=== PATIENT | female | born 1935 | race Caucasian/White ===

== ENCOUNTER 2021-12-02 18:22 | Emergency (ER) ==
[~2021-12-02] VITALS: Ht 152.4 cm; Wt 56.1 kg
== END 2021-12-02 21:34 | disposition left against medical advice (07) ==
LOC: M ED 18:22
DX: Z53.21 Procedure and treatment not carried out due to patient leaving prior to being seen by health care provider (principal)

== ENCOUNTER → 2022-04-27 | Outpatient (CLI) | payer MEDICARE, BC | LOC: M WUC 13:00 | PROVIDERS: ATTEND Physician Assistant | DX: S00.33XA Contusion of nose, initial encounter (principal); S60.222A Contusion of left hand, initial encounter; X58.XXXA Exposure to other specified factors, initial encounter; M25.762 Osteophyte, left knee; Z96.9 Presence of functional implant, unspecified ==

== ENCOUNTER 2022-05-30 13:17 | Emergency (ER) | payer MEDICARE, BC ==
[~2022-05-30] VITALS: Ht 154.9 cm; Wt 60.0 kg
[2022-05-30] MEDS ORDERED: ASPI81TA26 (13:36)
[2022-05-30] MEDS ORDERED: MIRT-10 (13:36)
[2022-05-30] MEDS ORDERED: ALEN70TA82 (13:36)
[2022-05-30] MEDS ORDERED: SERT25TA21 (13:36)
[2022-05-30] MEDS ORDERED: ROSU20TA5 (13:36)
[2022-05-30] MEDS ORDERED: MYRB50TA (13:36)
[2022-05-30] MEDS ORDERED: MAGN400T33 (13:36)
[2022-05-30] MEDS ORDERED: LEVO88TA3 (13:36)
[2022-05-30 15:23] LABS: BASO # 0.1 10^3/uL (0.0-0.2); BASO % 0.9 % (0.0-1.0); EOS # 0.2 10^3/uL (0.0-0.5); EOS % 4.4 % (0.0-3.0); HEMATOCRIT 40.2 % (36.0-47.0); HEMOGLOBIN 13.1 g/dl (12.0-15.5); LYMPH # 1.2 10^3/uL (1.5-5.0); LYMPH % 21.8 % (24.0-44.0); MEAN CORPUSCULAR HEMOGLOBIN 31.6 pg (27.0-33.0); MEAN CORPUSCULAR HGB CONC 32.6 g/dl (32.0-36.5); MEAN CORPUSCULAR VOLUME 97.1 fl (80.0-96.0); MONO # 0.5 10^3/uL (0.0-0.8); MONO % 8.5 % (2.0-8.0); NEUTROPHILS # 3.5 10^3/uL (1.5-8.5); NEUTROPHILS % 64.2 % (36.0-66.0); PLATELET COUNT, AUTOMATED 273 10^3/uL (150-450); RED BLOOD COUNT 4.14 10^6/uL (4.00-5.40); WHITE BLOOD COUNT 5.4 10^3/uL (4.0-10.0)
[2022-05-30 15:56] LABS: ACETAMINOPHEN LEVEL < 2.0 UG/ML (10.0-20.0)
[2022-05-30 15:57] LABS: ALBUMIN 3.9 G/DL (3.2-5.2); ALKALINE PHOSPHATASE 68 U/L (46-116); ALT/SGPT 20 U/L (7.0-40); AST/SGOT 23 U/L (<34); BILIRUBIN,DIRECT 0.1 MG/DL (<0.4); BILIRUBIN,TOTAL 0.4 MG/DL (0.3-1.2); BLOOD UREA NITROGEN 14 MG/DL (9-23); CALCIUM LEVEL 9.2 MG/DL (8.3-10.6); CARBON DIOXIDE LEVEL 24 MMOL/L (20-31); CHLORIDE LEVEL 107 MMOL/L (98-107); CPK CREATINE PHOSPHOKINASE 81 U/L (34-145); CREATININE FOR GFR 0.69 MG/DL (0.55-1.30); GLOMERULAR FILTRATION RATE > 60.0 (>32); GLUCOSE, FASTING 104 MG/DL (74-106); POTASSIUM SERUM 4.7 MMOL/L (3.5-5.1); SALICYLATE LEVEL < 3.0 MG/DL (<30); SODIUM LEVEL 141 MMOL/L (136-145); TOTAL PROTEIN 6.9 G/DL (5.7-8.2)
[2022-05-30 16:20] LABS: CK-MB VALUE MASS < 1.0 NG/ML (<3.6); MB/CK RELATIVE INDEX 1.23 (< OR =4)
[2022-05-30 16:24] LABS: THYROID STIMULATING HORMONE 1.116 uIU/ML (0.55-4.78)
[2022-05-30 17:21] VITALS: BP 138/85
== END 2022-05-30 17:23 | disposition home or self-care (01) ==
LOC: M ED 13:17
DX: H81.4 Vertigo of central origin (principal); I44.4 Left anterior fascicular block; I10 Essential (primary) hypertension; E03.9 Hypothyroidism, unspecified; C02.9 Malignant neoplasm of tongue, unspecified; Z86.73 Personal history of transient ischemic attack (TIA), and cerebral infarction without residual deficits; Z88.0 Allergy status to penicillin; Z88.2 Allergy status to sulfonamides; Z91.018 Allergy to other foods; Z79.82 Long term (current) use of aspirin; Z79.52 Long term (current) use of systemic steroids; Z79.899 Other long term (current) drug therapy

== ENCOUNTER 2022-12-15 15:33 | Emergency (ER) | payer MEDICARE, BC ==
[~2022-12-15] VITALS: Ht 154.9 cm; Wt 60.7 kg
[~2022-12-15 15:33] MED LIST: ALEN70TA82; ASPI81TA26; LEVO88TA3; MAGN400T33; MIRT-10; MYRB50TA; ROSU20TA61; SERT25TA21
[2022-12-15] MEDS ORDERED: NS 1,000 ML IV SCH (16:55)
[2022-12-15 17:42] LABS: BASO % 0.7 % (0.0-1.0); EOS # 0.2 10^3/uL (0.0-0.5); EOS % 3.7 % (0.0-3.0); HEMATOCRIT 37.3 % (36.0-47.0); HEMOGLOBIN 11.9 g/dl (12.0-15.5); LYMPH # 1.4 10^3/uL (1.5-5.0); LYMPH % 22.9 % (24.0-44.0); MEAN CORPUSCULAR HEMOGLOBIN 31.5 pg (27.0-33.0); MEAN CORPUSCULAR HGB CONC 31.9 g/dl (32.0-36.5); MEAN CORPUSCULAR VOLUME 98.7 fl (80.0-96.0); MONO # 0.6 10^3/uL (0.0-0.8); MONO % 10.7 % (2.0-8.0); NEUTROPHILS # 3.6 10^3/uL (1.5-8.5); NEUTROPHILS % 61.8 % (36.0-66.0); PLATELET COUNT, AUTOMATED 225 10^3/uL (150-450); RED BLOOD COUNT 3.78 10^6/uL (4.00-5.40); WHITE BLOOD COUNT 5.9 10^3/uL (4.0-10.0)
[2022-12-15 18:01] LABS: CPK CREATINE PHOSPHOKINASE 106 U/L (34-145)
[2022-12-15 18:02] LABS: ALBUMIN 3.4 G/DL (3.2-5.2); ALKALINE PHOSPHATASE 53 U/L (46-116); ALT/SGPT 14 U/L (7.0-40); AST/SGOT 14 U/L (<34); BILIRUBIN,DIRECT 0.1 MG/DL (<0.4); BILIRUBIN,TOTAL 0.4 MG/DL (0.3-1.2); BLOOD UREA NITROGEN 15 MG/DL (9-23); CALCIUM LEVEL 9.1 MG/DL (8.3-10.6); CARBON DIOXIDE LEVEL 27 MMOL/L (20-31); CHLORIDE LEVEL 109 MMOL/L (98-107); CK-MB VALUE MASS < 1.0 NG/ML (<3.6); CREATININE FOR GFR 0.78 MG/DL (0.55-1.30); GLOMERULAR FILTRATION RATE > 60.0 (>32); GLUCOSE, FASTING 86 MG/DL (74-106); MB/CK RELATIVE INDEX 0.94 (< OR =4); POTASSIUM SERUM 4.5 MMOL/L (3.5-5.1); SODIUM LEVEL 139 MMOL/L (136-145); TOTAL PROTEIN 6.1 G/DL (5.7-8.2)
[2022-12-15 19:04] LABS: CK-MB VALUE MASS < 1.0 NG/ML (<3.6)
[2022-12-15 19:07] LABS: CPK CREATINE PHOSPHOKINASE 115 U/L (34-145); MB/CK RELATIVE INDEX 0.86 (< OR =4)
[2022-12-15 20:24] VITALS: O2SAT 92
[2022-12-15 21:00] VITALS: BP 120/60; TEMP 97.7; O2SAT 98
== END 2022-12-15 21:03 | disposition home or self-care (01) ==
LOC: M ED 15:33 → EDBD 15:33 → M ED 21:03
DX: B34.8 Other viral infections of unspecified site (principal); F03.90 Unspecified dementia, unspecified severity, without behavioral disturbance, psychotic disturbance, mood disturbance, and anxiety; I10 Essential (primary) hypertension; E03.9 Hypothyroidism, unspecified; Z88.0 Allergy status to penicillin; Z88.2 Allergy status to sulfonamides; Z91.018 Allergy to other foods

== ENCOUNTER 2023-02-09 18:44 | Emergency (ER) | payer MEDICARE, BC ==
[~2023-02-09] VITALS: Ht 154.9 cm; Wt 58.3 kg
[2023-02-09 18:46] VITALS: TEMP 98.2; O2SAT 99
[2023-02-09 18:51] VITALS: BP 168/86
[2023-02-09] MEDS ORDERED: ACETAMINOPHEN TAB 650MG DOSE (2X325MG) PO ONE (23:20)
== END 2023-02-09 23:45 | disposition home or self-care (01) ==
LOC: M ED 18:44
DX: S00.83XA Contusion of other part of head, initial encounter (principal); S20.211A Contusion of right front wall of thorax, initial encounter; S80.01XA Contusion of right knee, initial encounter; E03.9 Hypothyroidism, unspecified; E78.5 Hyperlipidemia, unspecified; Y92.410 Unspecified street and highway as the place of occurrence of the external cause; Z88.2 Allergy status to sulfonamides; Z88.5 Allergy status to narcotic agent; Z91.018 Allergy to other foods; Z79.82 Long term (current) use of aspirin; Z79.899 Other long term (current) drug therapy

== ENCOUNTER 2023-02-12 12:26 | Emergency (ER) | payer MEDICARE, BC ==
[~2023-02-12] VITALS: Ht 154.9 cm; Wt 58.6 kg
[2023-02-12 12:26] VITALS: TEMP 99.8
[2023-02-12 13:45] LABS: BASO % 0.4 % (0.0-1.0); EOS % 0.2 % (0.0-3.0); HEMATOCRIT 33.8 % (36.0-47.0); HEMOGLOBIN 11.3 g/dl (12.0-15.5); LYMPH % 9.6 % (24.0-44.0); MEAN CORPUSCULAR HGB CONC 33.4 g/dl (32.0-36.5); MEAN CORPUSCULAR VOLUME 95.8 fl (80.0-96.0); MONO # 0.6 10^3/uL (0.0-0.8); MONO % 5.3 % (2.0-8.0); NEUTROPHILS # 9.1 10^3/uL (1.5-8.5); NEUTROPHILS % 84.1 % (36.0-66.0); PLATELET COUNT, AUTOMATED 254 10^3/uL (150-450); RED BLOOD COUNT 3.53 10^6/uL (4.00-5.40); WHITE BLOOD COUNT 10.8 10^3/uL (4.0-10.0)
[2023-02-12 14:11] LABS: BLOOD UREA NITROGEN 12 MG/DL (9-23); CALCIUM LEVEL 8.4 MG/DL (8.3-10.6); CARBON DIOXIDE LEVEL 24 MMOL/L (20-31); CHLORIDE LEVEL 108 MMOL/L (98-107); CREATININE FOR GFR 0.69 MG/DL (0.55-1.30); GLOMERULAR FILTRATION RATE > 60.0 (>32); GLUCOSE, FASTING 111 MG/DL (74-106); POTASSIUM SERUM 4.4 MMOL/L (3.5-5.1); SODIUM LEVEL 141 MMOL/L (136-145)
[2023-02-12 14:13] LABS: THYROID STIMULATING HORMONE 0.024 uIU/ML (0.55-4.78)
[2023-02-12] MEDS ORDERED: DULC10SU2 PR (15:22)
[2023-02-12 15:23] VITALS: BP 154/78; O2SAT 99
== END 2023-02-12 15:30 | disposition home or self-care (01) ==
LOC: M ED 12:26
DX: K59.00 Constipation, unspecified (principal); R94.6 Abnormal results of thyroid function studies; E03.9 Hypothyroidism, unspecified; F41.9 Anxiety disorder, unspecified; F32.A Depression, unspecified; I10 Essential (primary) hypertension; Z79.82 Long term (current) use of aspirin; Z79.899 Other long term (current) drug therapy

== ENCOUNTER → 2023-03-28 | Outpatient (CLI) | payer MEDICARE, BC ==
[~2023-03-28] MED LIST changes: +DULC10SU2 PR
== END ==
LOC: M WHC 13:05
PROVIDERS: ATTEND Internal Medicine
DX: Z13.820 Encounter for screening for osteoporosis (principal); M85.88 Other specified disorders of bone density and structure, other site

== ENCOUNTER 2023-04-15 15:53 | Emergency (ER) | payer MEDICARE, BC ==
[~2023-04-15] VITALS: Ht 152.4 cm; Wt 60.2 kg
[2023-04-15] MEDS ORDERED: KETOROLAC 30 MG/ML 1ML VIAL IV ONE (19:00)
[2023-04-15] MEDS ORDERED: ISOVUE-370 76% 100ML VIAL As Ordered ONE (19:02)
[2023-04-15 19:08] LABS: BASO % 0.5 % (0.0-1.0); EOS # 0.1 10^3/uL (0.0-0.5); EOS % 1.2 % (0.0-3.0); HEMATOCRIT 33.3 % (36.0-47.0); HEMOGLOBIN 11.1 g/dl (12.0-15.5); LYMPH # 1.9 10^3/uL (1.5-5.0); LYMPH % 23.1 % (24.0-44.0); MEAN CORPUSCULAR HEMOGLOBIN 32.1 pg (27.0-33.0); MEAN CORPUSCULAR HGB CONC 33.3 g/dl (32.0-36.5); MEAN CORPUSCULAR VOLUME 96.2 fl (80.0-96.0); MONO # 0.8 10^3/uL (0.0-0.8); NEUTROPHILS # 5.4 10^3/uL (1.5-8.5); NEUTROPHILS % 65.1 % (36.0-66.0); PLATELET COUNT, AUTOMATED 321 10^3/uL (150-450); RED BLOOD COUNT 3.46 10^6/uL (4.00-5.40); WHITE BLOOD COUNT 8.3 10^3/uL (4.0-10.0)
[2023-04-15 19:33] LABS: RSV AMPLIFICATION NEGATIVE (NEGATIVE)
[2023-04-15] MEDS ORDERED: PERCOCET 5MG/325MG TAB PO ONE (20:05)
[2023-04-15] MEDS ORDERED: PERC5TAB12 PO (20:34)
[2023-04-15 20:44] VITALS: TEMP 97.3
[2023-04-15 20:46] VITALS: BP 132/68; O2SAT 99
== END 2023-04-15 20:58 | disposition home or self-care (01) ==
LOC: M ED 15:53
DX: R68.84 Jaw pain (principal); I10 Essential (primary) hypertension; F03.90 Unspecified dementia, unspecified severity, without behavioral disturbance, psychotic disturbance, mood disturbance, and anxiety; E03.9 Hypothyroidism, unspecified; Z86.79 Personal history of other diseases of the circulatory system; Z88.0 Allergy status to penicillin; Z88.2 Allergy status to sulfonamides; Z88.5 Allergy status to narcotic agent; Z91.018 Allergy to other foods; Z85.828 Personal history of other malignant neoplasm of skin; Z79.82 Long term (current) use of aspirin; Z79.899 Other long term (current) drug therapy
CPT/HCPCS: 70491; 80047; 85025; 87631; 87880; 96374; 99283; J1885; Q9967

== ENCOUNTER 2023-04-22 13:15 | Observation (INO) | payer MEDICARE, BC ==
[~2023-04-22] VITALS: Ht 154.9 cm; Wt 59.2 kg
[~2023-04-22 13:15] MED LIST changes: -ALEN70TA82; +ALEN70TA82 PO; -ASPI81TA26; +ASPI81TA26 PO; -MAGN400T33; +MAGN400T33 PO; -MIRT-10; +MIRT-10 PO; +PERC5TAB12 PO; -ROSU20TA61; +ROSU20TA61 PO; -SERT25TA21; +SERT25TA21 PO
[2023-04-22 14:40] VITALS: BP 129/63; TEMP 98.8; O2SAT 100
[2023-04-22 15:38] LABS: BASO # 0.1 10^3/uL (0.0-0.2); BASO % 0.9 % (0.0-1.0); EOS # 0.1 10^3/uL (0.0-0.5); EOS % 1.9 % (0.0-3.0); HEMATOCRIT 32.4 % (36.0-47.0); HEMOGLOBIN 10.6 g/dl (12.0-15.5); LYMPH # 1.4 10^3/uL (1.5-5.0); LYMPH % 20.8 % (24.0-44.0); MEAN CORPUSCULAR HEMOGLOBIN 32.2 pg (27.0-33.0); MEAN CORPUSCULAR HGB CONC 32.7 g/dl (32.0-36.5); MEAN CORPUSCULAR VOLUME 98.5 fl (80.0-96.0); MONO # 0.6 10^3/uL (0.0-0.8); NEUTROPHILS # 4.7 10^3/uL (1.5-8.5); NEUTROPHILS % 68.1 % (36.0-66.0); PLATELET COUNT, AUTOMATED 320 10^3/uL (150-450); RED BLOOD COUNT 3.29 10^6/uL (4.00-5.40); WHITE BLOOD COUNT 6.9 10^3/uL (4.0-10.0)
[2023-04-22] MEDS ORDERED: ACETAMINOPHEN TAB 650MG DOSE (2X325MG) PO PRN (15:40)
[2023-04-22] MEDS ORDERED: MAALOX 30 ML SUSP *UDC PO PRN (15:40)
[2023-04-22] MEDS ORDERED: MOM 30ML SUSPENSION UDC PO PRN (15:40)
[2023-04-22 16:04] LABS: C REACTIVE PROTEIN QUANTITATIV < 0.40 MG/DL (<1.0)
[2023-04-22 16:05] LABS: BLOOD UREA NITROGEN 20 MG/DL (9-23); CARBON DIOXIDE LEVEL 28 MMOL/L (20-31); CHLORIDE LEVEL 102 MMOL/L (98-107); ERYTHROCYTE SEDIMENTATION RATE 51 mm/hr (0-30); GLOMERULAR FILTRATION RATE 55.8 (>32); GLUCOSE, FASTING 105 MG/DL (74-106); MAGNESIUM LEVEL 2.5 MG/DL (1.8-2.4); POTASSIUM SERUM 4.8 MMOL/L (3.5-5.1); SODIUM LEVEL 138 MMOL/L (136-145)
[2023-04-22] MEDS ORDERED: LEVO50TA5 PO (16:11)
[2023-04-22] MEDS ORDERED: UNIT1TAB PO (16:11)
[2023-04-22] MEDS ORDERED: OXYC1TAB23 PO (16:11)
[2023-04-22] MEDS ORDERED: PERCOCET 5MG/325MG TAB PO PRN (16:55)
[2023-04-22] MEDS ORDERED: BISACODYL 10MG SUPP PR ONE (17:00)
[2023-04-22] MEDS ORDERED: MOXIFLOXACIN 400 MG TAB PO ONE (17:00)
[2023-04-22] MEDS ORDERED: LEVO75TA34 PO (17:33)
[2023-04-22] MEDS ORDERED: MOXIFLOXACIN HCL 400 MG in IV 1 EA IV ONE (18:00)
[2023-04-22] MEDS: MAGNESIUM OXIDE 400MG TAB (MAG-OX) PO SCH (20:48)
[2023-04-22] MEDS: MIRTAZAPINE 15 MG TAB PO SCH (20:48)
[2023-04-22] MEDS: SERTRALINE HCL 25 MG TABLET PO SCH (20:49)
[2023-04-22] MEDS: ROSUVASTATIN 10 MG TAB (CRESTOR) PO SCH (20:49)
[2023-04-22] MEDS: SENOKOT S TAB PO SCH (20:49)
[2023-04-22 21:08] VITALS: BP_SYST 131; BP_SYST 133; BP_DIAS 56; BP_DIAS 63; TEMP 98.2; TEMP 99; O2SAT 94; O2SAT 96
[2023-04-23] VITALS (9 sets, daily range): BP systolic 112–155; BP diastolic 56–75; TEMP 97.3–98.1; O2SAT 92–97
[2023-04-23] MEDS ORDERED: LEVOTHYROXINE 50MCG TABLET (0.05MG) PO SCH (06:00)
[2023-04-23] MEDS ORDERED: MOXIFLOXACIN 400 MG TAB PO SCH (06:00)
[2023-04-23 06:19] LABS: INR 1.05; PROTHROMBIN TIME 13.4 SECONDS (12.5-14.5)
[2023-04-23 06:32] LABS: BLOOD UREA NITROGEN 15 MG/DL (9-23); CALCIUM LEVEL 8.7 MG/DL (8.3-10.6); CARBON DIOXIDE LEVEL 26 MMOL/L (20-31); CHLORIDE LEVEL 109 MMOL/L (98-107); CREATININE FOR GFR 0.82 MG/DL (0.55-1.30); GLOMERULAR FILTRATION RATE > 60.0 (>32); GLUCOSE, FASTING 94 MG/DL (74-106); MAGNESIUM LEVEL 2.4 MG/DL (1.8-2.4); POTASSIUM SERUM 4.7 MMOL/L (3.5-5.1); SODIUM LEVEL 143 MMOL/L (136-145)
[2023-04-23] MEDS ORDERED: LIDOCAINE 2% W/ EPINEPHRINE 1.7 ML DENTAL INJ As Ordered ONE (07:48)
[2023-04-23] MEDS ORDERED: SUCCINYLCHOLINE 100MG/5ML SYRINGE As Ordered ONE (08:36)
[2023-04-23] MEDS ORDERED: METOCLOPRAMIDE INJ 10MG/2ML VIAL As Ordered ONE (08:36)
[2023-04-23] MEDS ORDERED: dexmedeTOMIDine (4MCG/ML)200MCG/50ML BTL (PRECEDEX) As Ordered ONE (08:36)
[2023-04-23] MEDS ORDERED: MIDAZOLAM INJ 2MG/2ML VIAL As Ordered ONE (08:36)
[2023-04-23] MEDS ORDERED: LIDOCAINE 2% 100MG/5ML SDV (FOR ANES.) As Ordered ONE (08:36)
[2023-04-23] MEDS ORDERED: ONDANSETRON 4MG 2ML VIAL As Ordered ONE (08:36)
[2023-04-23] MEDS ORDERED: KETAMINE HCL 200MG/20ML VIAL As Ordered ONE (08:36)
[2023-04-23] MEDS ORDERED: propofoL 200 MG/20 ML VIAL As Ordered ONE (08:36)
[2023-04-23] MEDS ORDERED: fentaNYL 100 MCG/2 ML INJECTION As Ordered ONE (08:36)
[2023-04-23] MEDS ORDERED: ePHEDrine SULFATE 25 MG/5 ML(5MG/ML) SYRINGE As Ordered ONE (08:46)
[2023-04-23] MEDS ORDERED: ONDANSETRON 4MG 2ML VIAL IV PRN (09:00)
[2023-04-23] MEDS ORDERED: fentaNYL 100 MCG/2 ML INJECTION IV PRN (09:00)
[2023-04-23] MEDS ORDERED: LR 1,000 ML IV SCH (09:00)
[2023-04-23] MEDS ORDERED: oxyCODONE 5MG TAB PO PRN (09:00)
[2023-04-23] MEDS ORDERED: HYDROMORPHONE HCL 0.5 MG/ 0.5 ML SYRINGE IV PRN (09:00)
[2023-04-23] MEDS: SENOKOT S TAB PO SCH ×2 (10:12→20:29)
[2023-04-23] MEDS: MOXIFLOXACIN HCL 400 MG in IV 1 EA IV SCH (10:41)
[2023-04-23] MEDS ORDERED: MORPHINE 2 MG/ML 1ML VIAL IV ONE (11:30)
[2023-04-23] MEDS ORDERED: MORPHINE 2 MG/ML 1ML VIAL IV PRN (14:35)
[2023-04-23] MEDS ORDERED: MAGNESIUM CITRATE 300ML BTL PO ONE (19:00)
[2023-04-23] MEDS: SERTRALINE HCL 25 MG TABLET PO SCH (20:29)
[2023-04-23] MEDS: MIRTAZAPINE 15 MG TAB PO SCH (20:29)
[2023-04-23] MEDS: BISACODYL 10MG SUPP PR SCH (20:29)
[2023-04-23] MEDS: MAGNESIUM OXIDE 400MG TAB (MAG-OX) PO SCH (20:29)
[2023-04-23] MEDS: ROSUVASTATIN 10 MG TAB (CRESTOR) PO SCH (20:29)
[2023-04-24 02:00] VITALS: BP 105/57; TEMP 97.9; O2SAT 94
[2023-04-24 05:54] VITALS: BP 131/60; TEMP 98.2; O2SAT 92
[2023-04-24] MEDS ORDERED: LEVOTHYROXINE 75MCG TABLET (0.075MG) PO SCH (06:00)
[2023-04-24 06:54] LABS: BLOOD UREA NITROGEN 11 MG/DL (9-23); CALCIUM LEVEL 8.6 MG/DL (8.3-10.6); CARBON DIOXIDE LEVEL 28 MMOL/L (20-31); CHLORIDE LEVEL 108 MMOL/L (98-107); CREATININE FOR GFR 0.76 MG/DL (0.55-1.30); GLOMERULAR FILTRATION RATE > 60.0 (>32); GLUCOSE, FASTING 98 MG/DL (74-106); MAGNESIUM LEVEL 2.6 MG/DL (1.8-2.4); POTASSIUM SERUM 4.6 MMOL/L (3.5-5.1); SODIUM LEVEL 143 MMOL/L (136-145)
[2023-04-24] MEDS: SENOKOT S TAB PO SCH (08:35)
[2023-04-24] MEDS: MOXIFLOXACIN HCL 400 MG in IV 1 EA IV SCH (08:35)
[2023-04-24] MEDS: BISACODYL 10MG SUPP PR SCH (08:38)
[2023-04-24] MEDS ORDERED: SENN-52 PO (13:40)
[2023-04-24] MEDS ORDERED: MOXI400T11 PO (13:40)
[2023-04-24] MEDS ORDERED: KRIS20PA4 PO (13:40)
[2023-04-25] MEDS ORDERED: MOXIFLOXACIN 400 MG TAB PO SCH (06:00)
== END 2023-04-24 14:29 | disposition home or self-care (01) ==
LOC: M MSPAV 14:26
PROVIDERS: ADMIT Internal Medicine; ATTEND Student in an Organized Health Care Education/Training Program
DX: M27.2 Inflammatory conditions of jaws (principal); K12.2 Cellulitis and abscess of mouth; E03.9 Hypothyroidism, unspecified; F41.9 Anxiety disorder, unspecified; F32.A Depression, unspecified; K59.00 Constipation, unspecified; C02.9 Malignant neoplasm of tongue, unspecified; Z79.899 Other long term (current) drug therapy; Z79.82 Long term (current) use of aspirin; Z91.018 Allergy to other foods; Z88.5 Allergy status to narcotic agent; Z88.0 Allergy status to penicillin; Z88.2 Allergy status to sulfonamides
CPT/HCPCS: 10060; 36415; 41899; 80048; 83735; 85025; 85610; 85652; 86140; 87486; 87581; 87633; 87798; 88300; 96365; 96366; 96375; 96376; C1751; G0378; J1100; J2250; J2280; J2405; J3010

== ENCOUNTER 2023-07-04 10:01 | Emergency (ER) | payer MEDICARE, BC ==
[~2023-07-04] VITALS: Ht 154.9 cm; Wt 60.0 kg
[~2023-07-04 10:01] MED LIST changes: +KRIS20PA4 PO; +LEVO50TA5 PO; +LEVO75TA34 PO; +MOXI400T11 PO; +OXYC1TAB23 PO; +SENN-52 PO; +UNIT1TAB PO
[2023-07-04] MEDS ORDERED: amLODIPine 5 MG TAB PO ONE (10:20)
[2023-07-04] MEDS ORDERED: ACET1TAB55 PO (10:28)
[2023-07-04 10:35] LABS: HEMOGLOBIN 11.9 g/dl (12.0-15.5); MEAN CORPUSCULAR HEMOGLOBIN 32.9 pg (27.0-33.0); MEAN CORPUSCULAR HGB CONC 33.1 g/dl (32.0-36.5); MEAN CORPUSCULAR VOLUME 99.4 fl (80.0-96.0); PLATELET COUNT, AUTOMATED 268 10^3/uL (150-450); RED BLOOD COUNT 3.62 10^6/uL (4.00-5.40); WHITE BLOOD COUNT 5.8 10^3/uL (4.0-10.0)
[2023-07-04 11:16] LABS: ALBUMIN 3.7 G/DL (3.2-5.2); ALKALINE PHOSPHATASE 59 U/L (46-116); ALT/SGPT 22 U/L (7.0-40); AST/SGOT 27 U/L (<34); BILIRUBIN,TOTAL 0.4 MG/DL (0.3-1.2); BLOOD UREA NITROGEN 17 MG/DL (9-23); CALCIUM LEVEL 8.9 MG/DL (8.3-10.6); CARBON DIOXIDE LEVEL 27 MMOL/L (20-31); CHLORIDE LEVEL 108 MMOL/L (98-107); CREATININE FOR GFR 0.84 MG/DL (0.55-1.30); GLOMERULAR FILTRATION RATE > 60.0 (>32); GLUCOSE, FASTING 95 MG/DL (74-106); MAGNESIUM LEVEL 2.9 MG/DL (1.8-2.4); POTASSIUM SERUM 4.8 MMOL/L (3.5-5.1); SODIUM LEVEL 139 MMOL/L (136-145); TOTAL PROTEIN 6.3 G/DL (5.7-8.2)
[2023-07-04] MEDS ORDERED: **hydrALAZINE** 50 MG TAB PO ONE (11:50)
[2023-07-04] MEDS ORDERED: ACETAMINOPHEN TAB 650MG DOSE (2X325MG) PO ONE (11:55)
[2023-07-04 12:31] VITALS: BP 178/77
[2023-07-04] MEDS ORDERED: NORV5TAB PO (13:57)
[2023-07-04 14:08] VITALS: BP 136/89; TEMP 97.9; O2SAT 95
== END 2023-07-04 14:28 | disposition home or self-care (01) ==
LOC: EDBD 10:01 → M ED 10:01
DX: S06.0X0A Concussion without loss of consciousness, initial encounter (principal); S62.637A Displaced fracture of distal phalanx of left little finger, initial encounter for closed fracture; I10 Essential (primary) hypertension; W19.XXXA Unspecified fall, initial encounter; Y92.410 Unspecified street and highway as the place of occurrence of the external cause; Y93.K1 Activity, walking an animal; Y99.9 Unspecified external cause status; Z88.0 Allergy status to penicillin; Z88.2 Allergy status to sulfonamides; Z88.5 Allergy status to narcotic agent; Z91.018 Allergy to other foods; Z79.82 Long term (current) use of aspirin; Z79.899 Other long term (current) drug therapy

== ENCOUNTER 2023-07-08 12:30 | Observation (INO) | payer MEDICARE, BC ==
[~2023-07-08] VITALS: Ht 154.9 cm; Wt 59.1 kg
[~2023-07-08 12:30] MED LIST changes: +ACET1TAB55 PO; +NORV5TAB PO
[2023-07-08 13:22] LABS: BASO % 0.7 % (0.0-1.0); EOS # 0.1 10^3/uL (0.0-0.5); EOS % 2.2 % (0.0-3.0); HEMATOCRIT 37.8 % (36.0-47.0); HEMOGLOBIN 12.4 g/dl (12.0-15.5); LYMPH # 1.1 10^3/uL (1.5-5.0); LYMPH % 19.6 % (24.0-44.0); MEAN CORPUSCULAR HEMOGLOBIN 32.5 pg (27.0-33.0); MEAN CORPUSCULAR HGB CONC 32.8 g/dl (32.0-36.5); MONO # 0.4 10^3/uL (0.0-0.8); NEUTROPHILS # 3.9 10^3/uL (1.5-8.5); NEUTROPHILS % 70.3 % (36.0-66.0); PLATELET COUNT, AUTOMATED 297 10^3/uL (150-450); RED BLOOD COUNT 3.82 10^6/uL (4.00-5.40); WHITE BLOOD COUNT 5.6 10^3/uL (4.0-10.0)
[2023-07-08 13:50] LABS: BLOOD UREA NITROGEN 15 MG/DL (9-23); CARBON DIOXIDE LEVEL 28 MMOL/L (20-31); CHLORIDE LEVEL 108 MMOL/L (98-107); CK-MB VALUE MASS < 1.0 NG/ML (<3.6); CPK CREATINE PHOSPHOKINASE 493 U/L (34-145); CREATININE FOR GFR 0.77 MG/DL (0.55-1.30); GLOMERULAR FILTRATION RATE > 60.0 (>32); GLUCOSE, FASTING 95 MG/DL (74-106); MAGNESIUM LEVEL 2.3 MG/DL (1.8-2.4); POTASSIUM SERUM 4.4 MMOL/L (3.5-5.1); SODIUM LEVEL 139 MMOL/L (136-145)
[2023-07-08] MEDS: NS 1,000 ML IV SCH (13:50)
[2023-07-08 13:52] LABS: FREE T4 0.96 NG/DL (0.89-1.76)
[2023-07-08] MEDS ORDERED: SENN-23 PO (18:15)
[2023-07-08] MEDS ORDERED: HOME MED LIST COMPLETE! XX SCH (18:20)
[2023-07-08 19:19] LABS: FOLATE 9.2 NG/ML (>5.4); VITAMIN B12 LEVEL 505 PG/ML (211-911)
[2023-07-08] MEDS ORDERED: ACETAMINOPHEN TAB 650MG DOSE (2X325MG) PO PRN (20:30)
[2023-07-08] MEDS: ROSUVASTATIN 10 MG TAB (CRESTOR) PO SCH (22:05)
[2023-07-08] MEDS: ASPIRIN 81MG ENTERIC TABLET PO SCH (22:05)
[2023-07-08] MEDS: ENOXAPARIN 40MG/0.4ML SYRINGE (J1650 PER 10MG) SC SCH (22:05)
[2023-07-08] MEDS: ACETAMINOPHEN TAB 650MG DOSE (2X325MG) PO PRN (22:06)
[2023-07-08] MEDS: SERTRALINE HCL 25 MG TABLET PO SCH (22:06)
[2023-07-08] MEDS: SENOKOT S TAB PO SCH (22:06)
[2023-07-08] MEDS: MIRTAZAPINE 15 MG TAB PO SCH (22:22)
[2023-07-09] MEDS: LEVOTHYROXINE 50MCG TABLET (0.05MG) PO SCH (06:29)
[2023-07-09 07:25] LABS: BASO % 0.6 % (0.0-1.0); EOS # 0.2 10^3/uL (0.0-0.5); EOS % 3.1 % (0.0-3.0); HEMATOCRIT 36.2 % (36.0-47.0); HEMOGLOBIN 11.8 g/dl (12.0-15.5); LYMPH # 1.4 10^3/uL (1.5-5.0); LYMPH % 27.2 % (24.0-44.0); MEAN CORPUSCULAR HEMOGLOBIN 32.3 pg (27.0-33.0); MEAN CORPUSCULAR HGB CONC 32.6 g/dl (32.0-36.5); MEAN CORPUSCULAR VOLUME 99.2 fl (80.0-96.0); MONO # 0.5 10^3/uL (0.0-0.8); MONO % 9.7 % (2.0-8.0); NEUTROPHILS # 3.1 10^3/uL (1.5-8.5); NEUTROPHILS % 59.4 % (36.0-66.0); PLATELET COUNT, AUTOMATED 273 10^3/uL (150-450); RED BLOOD COUNT 3.65 10^6/uL (4.00-5.40); WHITE BLOOD COUNT 5.2 10^3/uL (4.0-10.0)
[2023-07-09 07:51] LABS: BLOOD UREA NITROGEN 11 MG/DL (9-23); CALCIUM LEVEL 8.8 MG/DL (8.3-10.6); CARBON DIOXIDE LEVEL 26 MMOL/L (20-31); CHLORIDE LEVEL 113 MMOL/L (98-107); CPK CREATINE PHOSPHOKINASE 722 U/L (34-145); CREATININE FOR GFR 0.64 MG/DL (0.55-1.30); GLOMERULAR FILTRATION RATE > 60.0 (>32); GLUCOSE, FASTING 102 MG/DL (74-106); MAGNESIUM LEVEL 2.2 MG/DL (1.8-2.4); POTASSIUM SERUM 4.5 MMOL/L (3.5-5.1); SODIUM LEVEL 145 MMOL/L (136-145)
[2023-07-09] MEDS: amLODIPine 5 MG TAB PO SCH (08:38)
[2023-07-09] MEDS ORDERED: ISOVUE-370 76% 100ML VIAL As Ordered ONE (08:42)
[2023-07-09] MEDS: MORPHINE 2 MG/ML 1ML VIAL IV ONE (09:06)
[2023-07-09] MEDS: MIRALAX *UNIT DOSE* 17GM PACKET PO SCH (10:39)
[2023-07-09] MEDS: NS 1,000 ML IV SCH (10:39)
[2023-07-09] MEDS: BISACODYL 10MG SUPP PR ONE (10:39)
[2023-07-10] MEDS: LEVOTHYROXINE 75MCG TABLET (0.075MG) PO SCH (06:00)
[2023-07-10 08:18] LABS: BASO # 0.1 10^3/uL (0.0-0.2); BASO % 0.7 % (0.0-1.0); EOS # 0.1 10^3/uL (0.0-0.5); EOS % 1.7 % (0.0-3.0); HEMATOCRIT 31.5 % (36.0-47.0); HEMOGLOBIN 10.5 g/dl (12.0-15.5); LYMPH # 1.3 10^3/uL (1.5-5.0); LYMPH % 18.2 % (24.0-44.0); MEAN CORPUSCULAR HEMOGLOBIN 33.2 pg (27.0-33.0); MEAN CORPUSCULAR HGB CONC 33.3 g/dl (32.0-36.5); MEAN CORPUSCULAR VOLUME 99.7 fl (80.0-96.0); MONO # 0.5 10^3/uL (0.0-0.8); MONO % 7.6 % (2.0-8.0); NEUTROPHILS # 4.9 10^3/uL (1.5-8.5); NEUTROPHILS % 71.5 % (36.0-66.0); PLATELET COUNT, AUTOMATED 274 10^3/uL (150-450); RED BLOOD COUNT 3.16 10^6/uL (4.00-5.40); WHITE BLOOD COUNT 6.9 10^3/uL (4.0-10.0)
[2023-07-10 08:49] LABS: BLOOD UREA NITROGEN 11 MG/DL (9-23); CALCIUM LEVEL 8.7 MG/DL (8.3-10.6); CARBON DIOXIDE LEVEL 26 MMOL/L (20-31); CHLORIDE LEVEL 110 MMOL/L (98-107); CREATININE FOR GFR 0.73 MG/DL (0.55-1.30); GLOMERULAR FILTRATION RATE > 60.0 (>32); GLUCOSE, FASTING 102 MG/DL (74-106); MAGNESIUM LEVEL 2.1 MG/DL (1.8-2.4); POTASSIUM SERUM 4.4 MMOL/L (3.5-5.1); SODIUM LEVEL 142 MMOL/L (136-145)
[2023-07-10] MEDS: FLEET ENEMA PR ONE (08:50)
[2023-07-10 08:51] VITALS: BP 142/71
[2023-07-10 14:30] VITALS: BP_SYST 125; BP_SYST 131; BP_SYST 163; BP_DIAS 61; BP_DIAS 69; BP_DIAS 71
[2023-07-10 14:35] VITALS: BP 125/69; TEMP 97.5; O2SAT 99
[2023-07-10 20:39] VITALS: BP 146/66; TEMP 97.7; O2SAT 98
[2023-07-10] MEDS: DICYCLOMINE 10 MG CAP PO SCH (21:16)
[2023-07-11 06:00] VITALS: BP 121/59; TEMP 98.1; O2SAT 98
[2023-07-11] MEDS: SIMETHICONE 80MG CHEW TAB PO SCH (10:30)
[2023-07-11] MEDS: BISACODYL 10MG SUPP PR ONE (10:30)
[2023-07-11] MEDS ORDERED: MIRA33506 PO ×3 (10:58→12:15)
[2023-07-11] MEDS ORDERED: SIME80TA16 PO ×2 (11:02→12:15)
[2023-07-11] MEDS ORDERED: SIMETHICONE 80MG CHEW TAB PO PRN (12:00)
[2023-07-11] MEDS ORDERED: LIDO1ADH10 TP (12:15)
[2023-07-11] MEDS ORDERED: DULC10SU2 PR (12:15)
[2023-07-11 13:18] LABS: BASO % 0.7 % (0.0-1.0); EOS # 0.2 10^3/uL (0.0-0.5); EOS % 3.4 % (0.0-3.0); HEMATOCRIT 32.7 % (36.0-47.0); HEMOGLOBIN 10.7 g/dl (12.0-15.5); LYMPH # 1.3 10^3/uL (1.5-5.0); LYMPH % 24.2 % (24.0-44.0); MEAN CORPUSCULAR HEMOGLOBIN 32.5 pg (27.0-33.0); MEAN CORPUSCULAR HGB CONC 32.7 g/dl (32.0-36.5); MEAN CORPUSCULAR VOLUME 99.4 fl (80.0-96.0); MONO # 0.5 10^3/uL (0.0-0.8); MONO % 9.7 % (2.0-8.0); NEUTROPHILS # 3.3 10^3/uL (1.5-8.5); NEUTROPHILS % 61.8 % (36.0-66.0); PLATELET COUNT, AUTOMATED 276 10^3/uL (150-450); RED BLOOD COUNT 3.29 10^6/uL (4.00-5.40); WHITE BLOOD COUNT 5.4 10^3/uL (4.0-10.0)
[2023-07-11 14:00] VITALS: BP 140/80; TEMP 97.7; O2SAT 99
[2023-07-11] MEDS ORDERED: MILKSUS3 PO (15:44)
== END 2023-07-11 16:35 | disposition home or self-care (01) ==
LOC: M ED 12:30 → M ED INP 12:31 → ENRESERV 07-10 13:39 → M MSPAV 07-10 14:11
PROVIDERS: ADMIT Internal Medicine; ATTEND Internal Medicine
DX: R42 Dizziness and giddiness (principal); R29.6 Repeated falls; R53.1 Weakness; Z86.73 Personal history of transient ischemic attack (TIA), and cerebral infarction without residual deficits; R10.9 Unspecified abdominal pain; M79.81 Nontraumatic hematoma of soft tissue; I95.1 Orthostatic hypotension; R74.8 Abnormal levels of other serum enzymes; F03.90 Unspecified dementia, unspecified severity, without behavioral disturbance, psychotic disturbance, mood disturbance, and anxiety; E03.9 Hypothyroidism, unspecified; I10 Essential (primary) hypertension; E78.5 Hyperlipidemia, unspecified; F41.9 Anxiety disorder, unspecified; F32.A Depression, unspecified; C09.9 Malignant neoplasm of tonsil, unspecified; Z79.82 Long term (current) use of aspirin; Z88.0 Allergy status to penicillin; Z91.018 Allergy to other foods; Z88.5 Allergy status to narcotic agent; Z88.2 Allergy status to sulfonamides
CPT/HCPCS: 36415; 70450; 70551; 71045; 74174; 74177; 80048; 81001; 81002; 82140; 82550; 82553; 82607; 82746; 83605; 83735; 84439; 84443; 84484; 85025; 87486; 87581; 87633; 87798; 93005; 93041; 94760; 96361; 96372; 96374; 97161; 97165; 97530; 97535; 99285; G0378; J1650; Q9967

== ENCOUNTER 2023-10-24 12:29 | Emergency (ER) | payer MEDICARE, BC ==
[~2023-10-24] VITALS: Ht 154.9 cm; Wt 59.1 kg
[~2023-10-24 12:29] MED LIST changes: +LIDO1ADH10 TP; +MILKSUS3 PO; +MIRA33506 PO; +SENN-23 PO; +SIME80TA16 PO
[2023-10-24] MEDS ORDERED: PENT400T47 PO (12:47)
[2023-10-24] MEDS ORDERED: VITA PO (12:47)
[2023-10-24] MEDS ORDERED: DOXY100C3 PO (12:47)
[2023-10-24 13:58] LABS: BASO # 0.1 10^3/uL (0.0-0.2); BASO % 0.8 % (0.0-1.0); EOS # 0.3 10^3/uL (0.0-0.5); EOS % 4.4 % (0.0-3.0); HEMATOCRIT 36.5 % (36.0-47.0); LYMPH # 1.4 10^3/uL (1.5-5.0); LYMPH % 19.1 % (24.0-44.0); MEAN CORPUSCULAR HEMOGLOBIN 31.8 pg (27.0-33.0); MEAN CORPUSCULAR HGB CONC 32.9 g/dl (32.0-36.5); MEAN CORPUSCULAR VOLUME 96.8 fl (80.0-96.0); MONO # 0.5 10^3/uL (0.0-0.8); MONO % 7.1 % (2.0-8.0); NEUTROPHILS % 68.3 % (36.0-66.0); PLATELET COUNT, AUTOMATED 266 10^3/uL (150-450); RED BLOOD COUNT 3.77 10^6/uL (4.00-5.40); WHITE BLOOD COUNT 7.3 10^3/uL (4.0-10.0)
[2023-10-24 14:23] LABS: ALBUMIN 3.5 G/DL (3.2-5.2); ALKALINE PHOSPHATASE 74 U/L (46-116); ALT/SGPT 9 U/L (7.0-40); AST/SGOT 20 U/L (<34); BILIRUBIN,DIRECT 0.1 MG/DL (<0.4); BILIRUBIN,TOTAL 0.4 MG/DL (0.3-1.2); BLOOD UREA NITROGEN 15 MG/DL (9-23); CALCIUM LEVEL 9.3 MG/DL (8.3-10.6); CARBON DIOXIDE LEVEL 27 MMOL/L (20-31); CHLORIDE LEVEL 106 MMOL/L (98-107); CK-MB VALUE MASS < 1.0 NG/ML (<3.6); CPK CREATINE PHOSPHOKINASE 65 U/L (34-145); CREATININE FOR GFR 0.81 MG/DL (0.55-1.30); GLOMERULAR FILTRATION RATE > 60.0 (>32); GLUCOSE, FASTING 80 MG/DL (74-106); MB/CK RELATIVE INDEX 1.53 (< OR =4); POTASSIUM SERUM 4.6 MMOL/L (3.5-5.1); SODIUM LEVEL 140 MMOL/L (136-145); TOTAL PROTEIN 6.2 G/DL (5.7-8.2)
[2023-10-24 14:27] LABS: THYROID STIMULATING HORMONE 0.461 uIU/ML (0.55-4.78)
[2023-10-24 18:42] VITALS: BP 143/70; TEMP 97.7; O2SAT 98
== END 2023-10-24 18:44 | disposition home or self-care (01) ==
LOC: M ED 12:29
DX: R55 Syncope and collapse (principal); K59.00 Constipation, unspecified; I10 Essential (primary) hypertension; E78.5 Hyperlipidemia, unspecified; Z86.79 Personal history of other diseases of the circulatory system; Z79.82 Long term (current) use of aspirin; Z79.811 Long term (current) use of aromatase inhibitors; Z79.899 Other long term (current) drug therapy

== ENCOUNTER → 2024-04-15 | Outpatient (CLI) | payer MEDICARE, BC ==
[~2024-04-15] MED LIST changes: +DOXY100C3 PO; +PENT400T47 PO; -ROSU20TA61 PO; +ROSU20TA86 PO; +VITA PO
[2024-04-15 13:37] LABS: BLOOD UREA NITROGEN 13 MG/DL (9-23); CREATININE FOR GFR 0.85 MG/DL (0.55-1.30); GLOMERULAR FILTRATION RATE > 60.0 (>32)
== END ==
LOC: M LAB 12:08
PROVIDERS: ATTEND Physician Assistant
DX: G50.1 Atypical facial pain (principal)

== ENCOUNTER → 2024-04-19 | Outpatient (CLI) | payer MEDICARE, BC ==
[~2024-04-19] MED LIST changes: +ACET-897 PO; +AMLO1TAB24 PO; +DOCU100C16 PO; +ISOVUE-370 76% 100ML VIAL As Ordered ONE; +KETO10TAB PO; +RA V400C PO; +SERT50TA29 PO
== END ==
LOC: M RAD 15:17
PROVIDERS: ATTEND Physician Assistant
DX: G50.1 Atypical facial pain (principal); Z98.890 Other specified postprocedural states; Z85.818 Personal history of malignant neoplasm of other sites of lip, oral cavity, and pharynx
CPT/HCPCS: 70491; Q9967

== ENCOUNTER 2024-04-20 11:51 | Observation (INO) | payer MEDICARE, BC ==
[~2024-04-20] VITALS: Ht 152.4 cm; Wt 60.3 kg
[2024-04-20] MEDS: LEVOTHYROXINE 50MCG TABLET (0.05MG) PO SCH (06:00)
[~2024-04-20 11:51] MED LIST changes: -ACET-897 PO; -AMLO1TAB24 PO; -DOCU100C16 PO; -ISOVUE-370 76% 100ML VIAL As Ordered ONE; -KETO10TAB PO; -RA V400C PO; -SERT50TA29 PO
[2024-04-20 13:48] LABS: BASO % 0.4 % (0.0-1.0); EOS # 0.1 10^3/uL (0.0-0.5); HEMATOCRIT 38.1 % (36.0-47.0); HEMOGLOBIN 12.4 g/dl (12.0-15.5); LYMPH # 1.1 10^3/uL (1.5-5.0); LYMPH % 12.4 % (24.0-44.0); MEAN CORPUSCULAR HEMOGLOBIN 32.5 pg (27.0-33.0); MEAN CORPUSCULAR HGB CONC 32.5 g/dl (32.0-36.5); MEAN CORPUSCULAR VOLUME 99.7 fl (80.0-96.0); MONO # 0.5 10^3/uL (0.0-0.8); MONO % 5.3 % (2.0-8.0); NEUTROPHILS # 7.2 10^3/uL (1.5-8.5); NEUTROPHILS % 80.7 % (36.0-66.0); PLATELET COUNT, AUTOMATED 282 10^3/uL (150-450); RED BLOOD COUNT 3.82 10^6/uL (4.00-5.40); WHITE BLOOD COUNT 8.9 10^3/uL (4.0-10.0)
[2024-04-20 14:11] LABS: BLOOD UREA NITROGEN 13 MG/DL (9-23); CALCIUM LEVEL 9.5 MG/DL (8.3-10.6); CARBON DIOXIDE LEVEL 25 MMOL/L (20-31); CHLORIDE LEVEL 111 MMOL/L (98-107); CREATININE FOR GFR 0.74 MG/DL (0.55-1.30); GLOMERULAR FILTRATION RATE > 60.0 (>32); GLUCOSE, FASTING 81 MG/DL (74-106); MAGNESIUM LEVEL 2.5 MG/DL (1.8-2.4); SODIUM LEVEL 142 MMOL/L (136-145)
[2024-04-20 14:14] LABS: FREE T4 1.28 NG/DL (0.89-1.76); THYROID STIMULATING HORMONE 0.514 uIU/ML (0.55-4.78)
[2024-04-20] MEDS ORDERED: RA V400C PO (16:58)
[2024-04-20] MEDS ORDERED: DOCU100C16 PO (16:58)
[2024-04-20] MEDS ORDERED: AMLO1TAB24 PO (16:58)
[2024-04-20] MEDS ORDERED: SERT50TA29 PO (16:58)
[2024-04-20] MEDS ORDERED: HOME MED LIST COMPLETE! XX SCH (17:00)
[2024-04-20] MEDS: SERTRALINE HCL 50 MG TAB PO SCH (18:55)
[2024-04-20] MEDS: ACETAMINOPHEN 325 MG TAB PO ONE (18:56)
[2024-04-20] MEDS: DOCUSATE SODIUM 100MG CAPSULE PO SCH (20:18)
[2024-04-20] MEDS: ASPIRIN 81MG ENTERIC TABLET PO SCH (20:19)
[2024-04-20] MEDS: SENOKOT S TAB PO SCH (20:19)
[2024-04-20] MEDS: ROSUVASTATIN 10 MG TAB (CRESTOR) PO SCH (20:19)
[2024-04-20] MEDS: MIRTAZAPINE 15 MG TAB PO SCH (20:19)
[2024-04-21 00:30] VITALS: BP 148/78; TEMP 98.2
[2024-04-21 04:20] VITALS: BP 128/81; TEMP 98.2; O2SAT 96
[2024-04-21 07:24] LABS: BASO % 0.7 % (0.0-1.0); EOS # 0.2 10^3/uL (0.0-0.5); EOS % 2.6 % (0.0-3.0); HEMOGLOBIN 11.3 g/dl (12.0-15.5); LYMPH # 1.7 10^3/uL (1.5-5.0); LYMPH % 29.2 % (24.0-44.0); MEAN CORPUSCULAR HEMOGLOBIN 32.8 pg (27.0-33.0); MEAN CORPUSCULAR HGB CONC 33.2 g/dl (32.0-36.5); MEAN CORPUSCULAR VOLUME 98.8 fl (80.0-96.0); MONO # 0.6 10^3/uL (0.0-0.8); NEUTROPHILS # 3.3 10^3/uL (1.5-8.5); NEUTROPHILS % 57.2 % (36.0-66.0); PLATELET COUNT, AUTOMATED 281 10^3/uL (150-450); RED BLOOD COUNT 3.44 10^6/uL (4.00-5.40); WHITE BLOOD COUNT 5.8 10^3/uL (4.0-10.0)
[2024-04-21 07:49] LABS: BLOOD UREA NITROGEN 17 MG/DL (9-23); CALCIUM LEVEL 9.3 MG/DL (8.3-10.6); CARBON DIOXIDE LEVEL 28 MMOL/L (20-31); CHLORIDE LEVEL 109 MMOL/L (98-107); CREATININE FOR GFR 0.78 MG/DL (0.55-1.30); GLOMERULAR FILTRATION RATE > 60.0 (>32); GLUCOSE, FASTING 84 MG/DL (74-106); POTASSIUM SERUM 4.9 MMOL/L (3.5-5.1); SODIUM LEVEL 140 MMOL/L (136-145)
[2024-04-21 08:10] VITALS: BP 158/67; TEMP 99; O2SAT 99
[2024-04-21] MEDS: ACETAMINOPHEN 325 MG TAB PO SCH (10:22)
[2024-04-21] MEDS: RIVAROXABAN 10MG TAB (XARELTO) PO SCH (10:23)
[2024-04-21 12:00] VITALS: BP 148/69; TEMP 97.4; O2SAT 98
[2024-04-21] MEDS: KETOROLAC TROMETHAMINE 10 MG TAB PO SCH (20:32)
[2024-04-21 20:35] VITALS: BP 132/63; TEMP 97.1; O2SAT 97
[2024-04-22 04:30] VITALS: BP 126/60; TEMP 97.8; O2SAT 95
[2024-04-22] MEDS: LEVOTHYROXINE 75MCG TABLET (0.075MG) PO SCH (04:46)
[2024-04-22 05:18] LABS: BASO % 0.6 % (0.0-1.0); EOS # 0.2 10^3/uL (0.0-0.5); EOS % 3.6 % (0.0-3.0); HEMATOCRIT 31.8 % (36.0-47.0); HEMOGLOBIN 10.5 g/dl (12.0-15.5); LYMPH # 1.6 10^3/uL (1.5-5.0); LYMPH % 30.6 % (24.0-44.0); MEAN CORPUSCULAR HEMOGLOBIN 33.1 pg (27.0-33.0); MEAN CORPUSCULAR VOLUME 100.3 fl (80.0-96.0); MONO # 0.5 10^3/uL (0.0-0.8); MONO % 9.7 % (2.0-8.0); NEUTROPHILS # 2.9 10^3/uL (1.5-8.5); NEUTROPHILS % 55.1 % (36.0-66.0); PLATELET COUNT, AUTOMATED 257 10^3/uL (150-450); RED BLOOD COUNT 3.17 10^6/uL (4.00-5.40); WHITE BLOOD COUNT 5.3 10^3/uL (4.0-10.0)
[2024-04-22 05:54] LABS: BLOOD UREA NITROGEN 28 MG/DL (9-23); CARBON DIOXIDE LEVEL 26 MMOL/L (20-31); CHLORIDE LEVEL 110 MMOL/L (98-107); CREATININE FOR GFR 0.86 MG/DL (0.55-1.30); GLOMERULAR FILTRATION RATE > 60.0 (>32); GLUCOSE, FASTING 96 MG/DL (74-106); POTASSIUM SERUM 4.5 MMOL/L (3.5-5.1); SODIUM LEVEL 141 MMOL/L (136-145)
[2024-04-22] MEDS ORDERED: KETO10TAB PO (07:48)
[2024-04-22] MEDS ORDERED: ACET-897 PO (07:48)
[2024-04-22 08:33] VITALS: BP 175/74; TEMP 97.4; O2SAT 99
[2024-04-22 08:44] VITALS: BP 136/80
== END 2024-04-22 11:30 | disposition home or self-care (01) ==
LOC: M ED 11:51 → EDBD 11:51 → M ED INP 11:52 → M PCU 04-21 00:23
PROVIDERS: ADMIT Internal Medicine Nephrology; ATTEND Internal Medicine Nephrology
DX: I95.1 Orthostatic hypotension (principal); R26.89 Other abnormalities of gait and mobility; R68.84 Jaw pain; E03.9 Hypothyroidism, unspecified; I10 Essential (primary) hypertension; I73.9 Peripheral vascular disease, unspecified; K59.00 Constipation, unspecified; F03.90 Unspecified dementia, unspecified severity, without behavioral disturbance, psychotic disturbance, mood disturbance, and anxiety; R29.6 Repeated falls; F41.9 Anxiety disorder, unspecified; F32.A Depression, unspecified; R42 Dizziness and giddiness; Z86.73 Personal history of transient ischemic attack (TIA), and cerebral infarction without residual deficits; Z79.82 Long term (current) use of aspirin; Z79.899 Other long term (current) drug therapy; Z88.0 Allergy status to penicillin; Z88.2 Allergy status to sulfonamides; Z91.018 Allergy to other foods; Z88.5 Allergy status to narcotic agent
CPT/HCPCS: 36415; 70450; 72125; 74021; 80048; 81000; 81015; 83735; 84439; 84443; 85025; 93005; 93041; 94760; 97161; 99285; G0378

== ENCOUNTER 2024-06-20 20:41 | Observation (INO) | payer MEDICARE, BC ==
[~2024-06-20] VITALS: Ht 152.4 cm; Wt 55.4 kg
[~2024-06-20 20:41] MED LIST changes: +ACET-897 PO; +AMLO1TAB24 PO; +DOCU100C16 PO; +KETO10TAB PO; +SERT50TA29 PO; +VITA268C PO
[2024-06-20 21:39] LABS: BASO # 0.1 10^3/uL (0.0-0.2); BASO % 0.4 % (0.0-1.0); EOS # 0.1 10^3/uL (0.0-0.5); EOS % 0.6 % (0.0-3.0); HEMATOCRIT 32.3 % (36.0-47.0); LYMPH # 1.5 10^3/uL (1.5-5.0); LYMPH % 10.7 % (24.0-44.0); MEAN CORPUSCULAR HEMOGLOBIN 31.9 pg (27.0-33.0); MEAN CORPUSCULAR VOLUME 103.2 fl (80.0-96.0); MONO # 1.3 10^3/uL (0.0-0.8); MONO % 9.4 % (2.0-8.0); NEUTROPHILS # 10.9 10^3/uL (1.5-8.5); NEUTROPHILS % 78.4 % (36.0-66.0); PLATELET COUNT, AUTOMATED 399 10^3/uL (150-450); RED BLOOD COUNT 3.13 10^6/uL (4.00-5.40); WHITE BLOOD COUNT 13.9 10^3/uL (4.0-10.0)
[2024-06-20 22:08] LABS: C REACTIVE PROTEIN QUANTITATIV 8.55 MG/DL (<1.0)
[2024-06-20 22:23] LABS: BLOOD UREA NITROGEN 15 MG/DL (9-23); CALCIUM LEVEL 8.7 MG/DL (8.3-10.6); CARBON DIOXIDE LEVEL 25 MMOL/L (20-31); CHLORIDE LEVEL 107 MMOL/L (98-107); CREATININE FOR GFR 0.84 MG/DL (0.55-1.30); GLOMERULAR FILTRATION RATE > 60.0 (>32); GLUCOSE, FASTING 106 MG/DL (74-106); POTASSIUM SERUM 5.6 MMOL/L (3.5-5.1); PROCALCITONIN 0.15 ng/ml; SODIUM LEVEL 139 MMOL/L (136-145)
[2024-06-20] MEDS: ACETAMINOPHEN *IV* 1,000 MG in IV 1 EA IV ONE (22:48)
[2024-06-21] MEDS ORDERED: MORPHINE 2 MG/ML 1ML VIAL IV PRN (01:05)
[2024-06-21] MEDS: LevoFLOXacin IV 750 MG in IV 1 EA IV ONE (01:13)
[2024-06-21] MEDS: ONDANSETRON 4MG 2ML VIAL IV ONE (01:14)
[2024-06-21] MEDS: KETOROLAC 30 MG/ML 1ML VIAL IV ONE (01:14)
[2024-06-21] MEDS: MIRTAZAPINE 15 MG TAB PO STA (02:47)
[2024-06-21] MEDS: SERTRALINE HCL 50 MG TAB PO ONE (02:47)
[2024-06-21] MEDS ORDERED: ACET-683 PO (08:30)
[2024-06-21] MEDS ORDERED: HOME MED LIST COMPLETE! XX SCH (08:35)
[2024-06-21 08:45] LABS: HEMATOCRIT 30.1 % (36.0-47.0); HEMOGLOBIN 9.7 g/dl (12.0-15.5); MEAN CORPUSCULAR HGB CONC 32.2 g/dl (32.0-36.5); MEAN CORPUSCULAR VOLUME 102.4 fl (80.0-96.0); PLATELET COUNT, AUTOMATED 361 10^3/uL (150-450); RED BLOOD COUNT 2.94 10^6/uL (4.00-5.40); WHITE BLOOD COUNT 9.1 10^3/uL (4.0-10.0)
[2024-06-21] MEDS: DOCUSATE SODIUM 100MG CAPSULE PO SCH (09:00)
[2024-06-21] MEDS ORDERED: ENOXAPARIN 40MG/0.4ML SYRINGE (J1650 PER 10MG) SC SCH (09:00)
[2024-06-21 09:05] LABS: BLOOD UREA NITROGEN 12 MG/DL (9-23); CALCIUM LEVEL 8.6 MG/DL (8.3-10.6); CARBON DIOXIDE LEVEL 27 MMOL/L (20-31); CHLORIDE LEVEL 109 MMOL/L (98-107); CREATININE FOR GFR 0.86 MG/DL (0.55-1.30); GLOMERULAR FILTRATION RATE > 60.0 (>32); GLUCOSE, FASTING 98 MG/DL (74-106); POTASSIUM SERUM 4.7 MMOL/L (3.5-5.1); SODIUM LEVEL 141 MMOL/L (136-145)
[2024-06-21] MEDS: ACETAMINOPHEN 325 MG TAB PO PRN (15:26)
[2024-06-21] MEDS: LEVOTHYROXINE 75MCG TABLET (0.075MG) PO SCH (16:35)
[2024-06-21] MEDS: ASPIRIN 81MG ENTERIC TABLET PO SCH (21:45)
[2024-06-21] MEDS: MIRTAZAPINE 15 MG TAB PO SCH (21:45)
[2024-06-21] MEDS: SERTRALINE HCL 50 MG TAB PO SCH (21:45)
[2024-06-22] MEDS: LEVOTHYROXINE 50MCG TABLET (0.05MG) PO SCH (06:36)
[2024-06-22 09:46] LABS: HEMATOCRIT 32.2 % (36.0-47.0); HEMOGLOBIN 10.4 g/dl (12.0-15.5); MEAN CORPUSCULAR HEMOGLOBIN 32.8 pg (27.0-33.0); MEAN CORPUSCULAR HGB CONC 32.3 g/dl (32.0-36.5); MEAN CORPUSCULAR VOLUME 101.6 fl (80.0-96.0); PLATELET COUNT, AUTOMATED 402 10^3/uL (150-450); RED BLOOD COUNT 3.17 10^6/uL (4.00-5.40)
[2024-06-22 10:18] LABS: BLOOD UREA NITROGEN 9 MG/DL (9-23); CARBON DIOXIDE LEVEL 26 MMOL/L (20-31); CHLORIDE LEVEL 109 MMOL/L (98-107); CREATININE FOR GFR 0.71 MG/DL (0.55-1.30); GLOMERULAR FILTRATION RATE > 60.0 (>32); GLUCOSE, FASTING 91 MG/DL (74-106); POTASSIUM SERUM 5.1 MMOL/L (3.5-5.1); SODIUM LEVEL 143 MMOL/L (136-145)
[2024-06-22] MEDS: ENOXAPARIN 40MG/0.4ML SYRINGE (J1650 PER 10MG) SC SCH (11:48)
[2024-06-22 13:20] VITALS: BP 117/57; TEMP 97.3; O2SAT 97
[2024-06-22] MEDS: LevoFLOXacin 750 MG TABLET PO SCH (21:36)
[2024-06-23] MEDS: RAMELTEON 8 MG TAB (ROZEREM) PO ONE (02:30)
[2024-06-23] MEDS: MOM 30ML SUSPENSION UDC PO PRN (09:57)
[2024-06-23 14:53] VITALS: BP 124/52; TEMP 97.5; O2SAT 94
[2024-06-24 03:48] VITALS: BP 120/63; TEMP 97.3; O2SAT 95
[2024-06-24] MEDS ORDERED: LEVO75TAB PO (10:50)
== END 2024-06-24 12:25 ==
LOC: M ED 20:41 → M ED INP 06-21 20:42 → M MSPAV 06-22 13:26
PROVIDERS: ADMIT Student in an Organized Health Care Education/Training Program; ATTEND Student in an Organized Health Care Education/Training Program
DX: L03.221 Cellulitis of neck (principal); T81.41XA Infection following a procedure, superficial incisional surgical site, initial encounter; Z66 Do not resuscitate; F03.90 Unspecified dementia, unspecified severity, without behavioral disturbance, psychotic disturbance, mood disturbance, and anxiety; I95.1 Orthostatic hypotension; I69.351 Hemiplegia and hemiparesis following cerebral infarction affecting right dominant side; E03.9 Hypothyroidism, unspecified; I10 Essential (primary) hypertension; E78.5 Hyperlipidemia, unspecified; I73.9 Peripheral vascular disease, unspecified; F32.A Depression, unspecified; F41.9 Anxiety disorder, unspecified; Z90.79 Acquired absence of other genital organ(s); Z98.49 Cataract extraction status, unspecified eye; Z88.0 Allergy status to penicillin; Z88.2 Allergy status to sulfonamides; Z88.5 Allergy status to narcotic agent; Z91.018 Allergy to other foods; Z79.890 Hormone replacement therapy; Z79.82 Long term (current) use of aspirin; Z79.899 Other long term (current) drug therapy; Z92.3 Personal history of irradiation; C79.51 Secondary malignant neoplasm of bone
CPT/HCPCS: 36415; 70491; 80047; 80048; 83605; 84132; 84145; 85025; 85027; 86140; 87040; 87070; 87077; 87186; 87426; 96372; 96374; 96375; 99285; G0378; J0131; J1650; J1885; J1956; J2405

== ENCOUNTER → 2024-07-01 | Outpatient (REF) ==
[~2024-07-01] MED LIST changes: +ACET-683 PO; +LEVO75TAB PO
[2024-07-01 11:17] LABS: HEMATOCRIT 35.8 % (36.0-47.0); HEMOGLOBIN 11.3 g/dl (12.0-15.5); MEAN CORPUSCULAR HEMOGLOBIN 32.1 pg (27.0-33.0); MEAN CORPUSCULAR HGB CONC 31.6 g/dl (32.0-36.5); MEAN CORPUSCULAR VOLUME 101.7 fl (80.0-96.0); PLATELET COUNT, AUTOMATED 414 10^3/uL (150-450); RED BLOOD COUNT 3.52 10^6/uL (4.00-5.40); WHITE BLOOD COUNT 6.8 10^3/uL (4.0-10.0)
[2024-07-01 11:33] LABS: BLOOD UREA NITROGEN 17 MG/DL (9-23); CALCIUM LEVEL 9.8 MG/DL (8.3-10.6); CARBON DIOXIDE LEVEL 28 MMOL/L (20-31); CHLORIDE LEVEL 107 MMOL/L (98-107); CREATININE FOR GFR 0.77 MG/DL (0.55-1.30); GLOMERULAR FILTRATION RATE > 60.0 (>32); GLUCOSE, FASTING 82 MG/DL (74-106); POTASSIUM SERUM 4.5 MMOL/L (3.5-5.1); SODIUM LEVEL 141 MMOL/L (136-145)
== END ==
PROVIDERS: ATTEND Physician Assistant
DX: T81.49XD Infection following a procedure, other surgical site, subsequent encounter (principal); B95.1 Streptococcus, group B, as the cause of diseases classified elsewhere

== ENCOUNTER → 2024-07-08 | Outpatient (REF) ==
[2024-07-08 10:55] LABS: HEMATOCRIT 34.8 % (36.0-47.0); HEMOGLOBIN 11.1 g/dl (12.0-15.5); MEAN CORPUSCULAR HEMOGLOBIN 32.7 pg (27.0-33.0); MEAN CORPUSCULAR HGB CONC 31.9 g/dl (32.0-36.5); MEAN CORPUSCULAR VOLUME 102.7 fl (80.0-96.0); PLATELET COUNT, AUTOMATED 401 10^3/uL (150-450); RED BLOOD COUNT 3.39 10^6/uL (4.00-5.40); WHITE BLOOD COUNT 5.8 10^3/uL (4.0-10.0)
[2024-07-08 11:08] LABS: CALCIUM LEVEL 9.3 MG/DL (8.3-10.6); CREATININE FOR GFR 0.94 MG/DL (0.55-1.30); GLOMERULAR FILTRATION RATE 59.8 (>32); POTASSIUM SERUM 4.8 MMOL/L (3.5-5.1)
== END ==
PROVIDERS: ATTEND Physician Assistant
DX: T81.49XD Infection following a procedure, other surgical site, subsequent encounter (principal); B95.1 Streptococcus, group B, as the cause of diseases classified elsewhere

== ENCOUNTER → 2024-07-15 | Outpatient (REF) ==
[2024-07-15 12:03] LABS: HEMATOCRIT 32.2 % (36.0-47.0); HEMOGLOBIN 10.4 g/dl (12.0-15.5); MEAN CORPUSCULAR HEMOGLOBIN 32.4 pg (27.0-33.0); MEAN CORPUSCULAR HGB CONC 32.3 g/dl (32.0-36.5); MEAN CORPUSCULAR VOLUME 100.3 fl (80.0-96.0); PLATELET COUNT, AUTOMATED 285 10^3/uL (150-450); RED BLOOD COUNT 3.21 10^6/uL (4.00-5.40)
[2024-07-15 12:31] LABS: BLOOD UREA NITROGEN 20 MG/DL (9-23); CALCIUM LEVEL 9.4 MG/DL (8.3-10.6); CARBON DIOXIDE LEVEL 29 MMOL/L (20-31); CHLORIDE LEVEL 105 MMOL/L (98-107); GLOMERULAR FILTRATION RATE > 60.0 (>32); GLUCOSE, FASTING 101 MG/DL (74-106); POTASSIUM SERUM 4.9 MMOL/L (3.5-5.1); SODIUM LEVEL 143 MMOL/L (136-145)
[2024-07-15 12:33] LABS: THYROID STIMULATING HORMONE 1.904 uIU/ML (0.55-4.78)
== END ==
PROVIDERS: ATTEND Physician Assistant
DX: T81.49XD Infection following a procedure, other surgical site, subsequent encounter (principal); B95.1 Streptococcus, group B, as the cause of diseases classified elsewhere

== ENCOUNTER → 2024-07-19 | Outpatient (REF) | PROVIDERS: ATTEND Internal Medicine | DX: K59.00 Constipation, unspecified (principal); M47.9 Spondylosis, unspecified ==

== ENCOUNTER → 2024-07-22 | Outpatient (REF) | PROVIDERS: ATTEND Physician Assistant | DX: T81.49XD Infection following a procedure, other surgical site, subsequent encounter (principal); B95.1 Streptococcus, group B, as the cause of diseases classified elsewhere; Z53.9 Procedure and treatment not carried out, unspecified reason ==

== ENCOUNTER → 2024-07-29 | Outpatient (REF) | payer MEDICARE, BC ==
[2024-07-29 17:28] LABS: C REACTIVE PROTEIN QUANTITATIV < 0.50 MG/DL (<1.0)
[2024-07-29 17:29] LABS: IRON (FE) 73 UG/DL (50-170); TOTAL IRON BINDING CAPACITY 304 UG/DL (250-425)
[2024-07-29 17:31] LABS: VITAMIN B12 LEVEL 720 PG/ML (211-911)
== END ==
LOC: M LAB REF 16:39
PROVIDERS: ATTEND Internal Medicine
DX: R68.84 Jaw pain (principal); D64.9 Anemia, unspecified

== ENCOUNTER → 2024-07-29 | Outpatient (REF) | PROVIDERS: ATTEND Internal Medicine | DX: I73.9 Peripheral vascular disease, unspecified (principal); Z53.9 Procedure and treatment not carried out, unspecified reason ==

== ENCOUNTER 2024-09-09 11:10 | Emergency (ER) | payer MEDICARE, BC ==
[~2024-09-09] VITALS: Ht 154.9 cm; Wt 53.2 kg
[2024-09-09 13:02] LABS: BASO % 0.6 % (0.0-1.0); EOS # 0.1 10^3/uL (0.0-0.5); EOS % 2.3 % (0.0-3.0); HEMATOCRIT 34.4 % (36.0-47.0); HEMOGLOBIN 11.4 g/dl (12.0-15.5); LYMPH # 1.4 10^3/uL (1.5-5.0); LYMPH % 26.8 % (24.0-44.0); MEAN CORPUSCULAR HEMOGLOBIN 32.1 pg (27.0-33.0); MEAN CORPUSCULAR HGB CONC 33.1 g/dl (32.0-36.5); MEAN CORPUSCULAR VOLUME 96.9 fl (80.0-96.0); MONO # 0.4 10^3/uL (0.0-0.8); NEUTROPHILS # 3.2 10^3/uL (1.5-8.5); NEUTROPHILS % 61.9 % (36.0-66.0); PLATELET COUNT, AUTOMATED 286 10^3/uL (150-450); RED BLOOD COUNT 3.55 10^6/uL (4.00-5.40); WHITE BLOOD COUNT 5.2 10^3/uL (4.0-10.0)
[2024-09-09 13:23] LABS: ALBUMIN 3.5 G/DL (3.2-5.2); ALKALINE PHOSPHATASE 62 U/L (35-104); ALT/SGPT 22 U/L (7.0-40); AST/SGOT 22 U/L (<34); BILIRUBIN,DIRECT < 0.1 MG/DL (<0.4); BILIRUBIN,TOTAL 0.3 MG/DL (0.3-1.2); BLOOD UREA NITROGEN 15 MG/DL (9-23); CALCIUM LEVEL 9.1 MG/DL (8.3-10.6); CARBON DIOXIDE LEVEL 26 MMOL/L (20-31); CHLORIDE LEVEL 109 MMOL/L (98-107); CREATININE FOR GFR 0.82 MG/DL (0.55-1.30); GLOMERULAR FILTRATION RATE > 60.0 (>32); GLUCOSE, FASTING 88 MG/DL (74-106); POTASSIUM SERUM 4.8 MMOL/L (3.5-5.1); SODIUM LEVEL 144 MMOL/L (136-145); TOTAL PROTEIN 6.7 G/DL (5.7-8.2)
[2024-09-09] MEDS ORDERED: ISOVUE-370 76% 100ML VIAL As Ordered ONE (14:59)
[2024-09-09 15:01] LABS: CK-MB VALUE MASS < 1.0 NG/ML (<3.6)
[2024-09-09 15:02] LABS: CPK CREATINE PHOSPHOKINASE 43 U/L (34-145); MB/CK RELATIVE INDEX 2.32 (< OR =4)
[2024-09-09] MEDS ORDERED: COLA100C5 PO (15:29)
[2024-09-09] MEDS ORDERED: LIDO15SO8 SSP (15:29)
[2024-09-09] MEDS: ACETAMINOPHEN 500 MG TAB PO ONE (15:43)
[2024-09-09] MEDS ORDERED: PILL CUTTER 1 EACH XX ONE (15:45)
[2024-09-09] MEDS: IBUPROFEN 400MG TAB PO ONE (15:46)
[2024-09-09] MEDS: traMADol 50 MG TAB PO ONE (15:48)
[2024-09-09] MEDS: LIDOCAINE VISCOUS 2% SOLN 15ML UDC SSP ONE (15:50)
[2024-09-09 16:09] LABS: CK-MB VALUE MASS < 1.0 NG/ML (<3.6)
[2024-09-09 16:10] LABS: CPK CREATINE PHOSPHOKINASE 41 U/L (34-145); MB/CK RELATIVE INDEX 2.43 (< OR =4)
[2024-09-09 17:13] LABS: KETONE, URINE AUTO RFX 1+ mg/dL (NEGATIVE); LEUKOCYTE ESTERASE UR AUTO RFX NEGATIVE (NEGATIVE); MUCUS, URINE RFX SMALL (NEGATIVE); NITRITE, URINE AUTO RFX NEGATIVE (NEGATIVE); RBC, URINE AUTO RFX 1 /HPF (0-3); SQUAM EPITHELIAL CELL UR AURFX 0 /HPF (0-6); WBC, URINE AUTO RFX 1 /HPF (0-3)
[2024-09-09 18:20] VITALS: BP 138/64; TEMP 98; O2SAT 99
== END 2024-09-09 18:24 | disposition home or self-care (01) ==
LOC: M ED 11:10 → EDBD 11:10 → M ED 18:24
DX: G50.1 Atypical facial pain (principal); W19.XXXA Unspecified fall, initial encounter; M43.12 Spondylolisthesis, cervical region; M25.78 Osteophyte, vertebrae; G30.9 Alzheimer's disease, unspecified; H81.4 Vertigo of central origin; Z86.79 Personal history of other diseases of the circulatory system; Z88.0 Allergy status to penicillin; Z88.2 Allergy status to sulfonamides; Z88.5 Allergy status to narcotic agent; Z88.8 Allergy status to other drugs, medicaments and biological substances; Z91.018 Allergy to other foods; Z79.82 Long term (current) use of aspirin; Z79.899 Other long term (current) drug therapy; Y99.9 Unspecified external cause status
CPT/HCPCS: 36415; 70450; 70491; 71045; 72125; 80047; 80048; 80076; 81001; 82550; 82553; 83605; 84484; 85025; 87040; 93005; 93041; 99285; Q9967

== ENCOUNTER 2025-02-08 10:46 | Emergency (ER) | payer MEDICARE, BC ==
[~2025-02-08] VITALS: Ht 154.9 cm; Wt 53.4 kg
[~2025-02-08 10:46] MED LIST changes: +COLA100C5 PO; +LIDO15SO8 SSP
[2025-02-08] MEDS: NS 500 ML IV ONE ×3 (11:25→16:44)
[2025-02-08] MEDS ORDERED: ISOVUE-370 76% 100 ML VIAL As Ordered ONE (11:33)
[2025-02-08] MEDS ORDERED: LEVO75TA4 PO (11:46)
[2025-02-08] MEDS ORDERED: SENN-186 PO (11:46)
[2025-02-08] MEDS ORDERED: TRAM50TA2 PO (11:46)
[2025-02-08] MEDS ORDERED: DULC5TAB PO (11:46)
[2025-02-08] MEDS ORDERED: MIRT-11 PO (11:46)
[2025-02-08] MEDS ORDERED: AMLO25TA PO (11:46)
[2025-02-08] MEDS ORDERED: TGTSUS2 PO (11:46)
[2025-02-08] MEDS ORDERED: E-401CAP2 PO (11:46)
[2025-02-08] MEDS ORDERED: IBUP0.77 PO (11:46)
[2025-02-08] MEDS ORDERED: MILKSUS3 PO (11:46)
[2025-02-08 11:48] LABS: VENOUS BASE EXCESS -10.9 (-2.0-2.0); VENOUS HCO3 16.4 MMOL/L (23.0-27.0); VENOUS O2 SATURATION 78.8 % (60.0-80.0); VENOUS PARTIAL PRESSURE CO2 41.5 mmHg (38.0-50.0); VENOUS PARTIAL PRESSURE O2 47.7 mmHg (30.0-50.0); VENOUS PH 7.214 UNITS (7.330-7.430); VENOUS STANDARD HCO3 15.6 MMOL/L; VENOUS TOTAL CO2 17.6 MMOL/L (24.0-28.0)
[2025-02-08] MEDS ORDERED: HOME MED LIST COMPLETE! XX SCH (11:50)
[2025-02-08 11:54] LABS: BASO # 0.0 10^3/uL (0.0-0.2); BASO % 0.6 % (0.0-1.0); EOS # 0.1 10^3/uL (0.0-0.5); EOS % 2.4 % (0.0-3.0); LYMPH # 1.4 10^3/uL (1.5-5.0); LYMPH % 26.3 % (24.0-44.0); MONO # 0.4 10^3/uL (0.0-0.8); MONO % 6.9 % (2.0-8.0); NEUTROPHILS # 3.4 10^3/uL (1.5-8.5); NEUTROPHILS % 63.4 % (36.0-66.0); PLATELET COUNT, AUTOMATED 347 10^3/uL (150-450)
[2025-02-08 12:29] LABS: ALT/SGPT 13 U/L (7.0-40); AST/SGOT 20 U/L (<34); CK-MB VALUE MASS < 1.0 NG/ML (<3.6); CPK CREATINE PHOSPHOKINASE 49 U/L (34-145); SALICYLATE LEVEL < 3.0 MG/DL (<30)
[2025-02-08 12:31] LABS: FREE T4 0.97 NG/DL (0.89-1.76)
[2025-02-08 13:14] LABS: KETONE, URINE AUTO RFX TRACE mg/dL (NEGATIVE); LEUKOCYTE ESTERASE UR AUTO RFX NEGATIVE (NEGATIVE); MUCUS, URINE RFX SMALL (NEGATIVE); NITRITE, URINE AUTO RFX NEGATIVE (NEGATIVE); RBC, URINE AUTO RFX 0 /HPF (0-3); SQUAM EPITHELIAL CELL UR AURFX 1 /HPF (0-6); WBC, URINE AUTO RFX 2 /HPF (0-3)
[2025-02-08 13:35] LABS: CK-MB VALUE MASS < 1.0 NG/ML (<3.6)
[2025-02-08 13:37] LABS: CPK CREATINE PHOSPHOKINASE 44 U/L (34-145)
[2025-02-08 13:55] LABS: CALCIUM LEVEL 9.3 MG/DL (8.3-10.6); CARBON DIOXIDE LEVEL 16 MMOL/L (20-31); CHLORIDE LEVEL 110 MMOL/L (98-107); CREATININE FOR GFR 1.00 MG/DL (0.55-1.30); GLOMERULAR FILTRATION RATE 53.9 (>32); POTASSIUM SERUM 4.6 MMOL/L (3.5-5.1); SODIUM LEVEL 141 MMOL/L (136-145)
[2025-02-08] MEDS: traMADol 50 MG TAB PO ONE (15:37)
[2025-02-08 18:01] VITALS: BP 135/68; TEMP 97.8; O2SAT 98
== END 2025-02-08 18:30 | disposition home or self-care (01) ==
LOC: M ED 10:46 → EDBD 10:46 → M ED 18:30
DX: R07.9 Chest pain, unspecified (principal); E86.0 Dehydration; R91.8 Other nonspecific abnormal finding of lung field; K82.8 Other specified diseases of gallbladder; I49.1 Atrial premature depolarization; I10 Essential (primary) hypertension; E03.9 Hypothyroidism, unspecified; F41.9 Anxiety disorder, unspecified; F32.A Depression, unspecified; Z86.79 Personal history of other diseases of the circulatory system; Z88.0 Allergy status to penicillin; Z88.2 Allergy status to sulfonamides; Z88.5 Allergy status to narcotic agent; Z88.8 Allergy status to other drugs, medicaments and biological substances; Z91.018 Allergy to other foods; Z90.89 Acquired absence of other organs; Z79.1 Long term (current) use of non-steroidal anti-inflammatories (NSAID); Z79.899 Other long term (current) drug therapy
CPT/HCPCS: 51701; 70450; 71045; 71275; 74177; 76705; 80047; 80048; 80076; 80143; 81001; 82140; 82550; 82553; 82803; 83605; 83690; 84439; 84443; 84484; 85025; 87040; 87076; 87154; 87486; 87581; 87633; 87798; 93005; 93041; 94760; 96360; 99285; Q9967

== ENCOUNTER 2025-03-10 13:49 | Observation (INO) | payer MEDICARE, BC ==
[~2025-03-10 13:49] MED LIST changes: +AMLO25TA PO; +DULC5TAB PO; +E-401CAP2 PO; +IBUP0.77 PO; +LEVO75TA4 PO; +MIRT-11 PO; +SENN-186 PO; +TGTSUS2 PO; +TRAM50TA2 PO
[2025-03-10] MEDS ORDERED: HOME MED LIST COMPLETE! XX SCH (14:35)
[2025-03-10] MEDS ORDERED: BISA5TAB15 PO (14:35)
[2025-03-10] MEDS: NS (Normal Saline) 0.9% 1,000 ML IV SCH (15:31)
[2025-03-10 15:45] LABS: BASO # 0.0 10^3/uL (0.0-0.2); BASO % 0.5 % (0.0-1.0); EOS # 0.1 10^3/uL (0.0-0.5); EOS % 1.2 % (0.0-3.0); LYMPH # 1.6 10^3/uL (1.5-5.0); LYMPH % 27.7 % (24.0-44.0); MONO # 0.5 10^3/uL (0.0-0.8); MONO % 7.8 % (2.0-8.0); NEUTROPHILS # 3.7 10^3/uL (1.5-8.5); NEUTROPHILS % 62.5 % (36.0-66.0); PLATELET COUNT, AUTOMATED 296 10^3/uL (150-450)
[2025-03-10 16:20] LABS: ALT/SGPT 17 U/L (7.0-40); AST/SGOT 38 U/L (<34); CALCIUM LEVEL 9.5 MG/DL (8.3-10.6); CARBON DIOXIDE LEVEL 19 MMOL/L (20-31); CHLORIDE LEVEL 108 MMOL/L (98-107); CK-MB VALUE MASS < 1.0 NG/ML (<3.6); CPK CREATINE PHOSPHOKINASE 48 U/L (34-145); CREATININE FOR GFR 1.57 MG/DL (0.55-1.30); GLOMERULAR FILTRATION RATE 31.3 (>32); POTASSIUM SERUM 5.7 MMOL/L (3.5-5.1); SODIUM LEVEL 140 MMOL/L (136-145)
[2025-03-10] MEDS ORDERED: ACETAMINOPHEN 325 MG TAB PO PRN (17:40)
[2025-03-10] MEDS ORDERED: BISACODYL 5 MG TAB PO PRN (17:40)
[2025-03-10] MEDS ORDERED: MOM 30 ML SUSPENSION UDC PO PRN (17:40)
[2025-03-10] MEDS ORDERED: LIDOCAINE VISCOUS 2% SOLN 15 ML UDC SSP PRN (17:40)
[2025-03-10 18:03] LABS: KETONE, URINE AUTO RFX NEGATIVE (NEGATIVE); MUCUS, URINE RFX SMALL (NEGATIVE); NITRITE, URINE AUTO RFX NEGATIVE (NEGATIVE); RBC, URINE AUTO RFX 0 /HPF (0-3); SQUAM EPITHELIAL CELL UR AURFX 1 /HPF (0-6); WBC, URINE AUTO RFX 3 /HPF (0-3)
[2025-03-10 18:05] LABS: LEUKOCYTE ESTERASE UR AUTO RFX TRACE (NEGATIVE)
[2025-03-10] MEDS ORDERED: PILL CUTTER 1 EACH XX PRN (18:10)
[2025-03-10] MEDS: NS (Normal Saline) 0.9% 1,000 ML IV ONE (18:35)
[2025-03-10] MEDS: SODIUM BICARBONATE 100 MEQ in D5W 1,000 ML IV SCH (19:59)
[2025-03-10 20:14] VITALS: BP 164/89; TEMP 97.7; O2SAT 96
[2025-03-10] MEDS: MIRTAZAPINE 15 MG TAB PO SCH (22:25)
[2025-03-10] MEDS: traMADol 50 MG TAB PO SCH (22:26)
[2025-03-10] MEDS: SERTRALINE HCL 50 MG TAB PO SCH (22:26)
[2025-03-10] MEDS: HEPARIN SOD 5000 UNITS/ML 1 ML VIAL/SYRINGE SC SCH (22:27)
[2025-03-11] MEDS: IBUPROFEN 100 MG 5 ML SUSP UDC DYE FREE PO SCH (00:33)
[2025-03-11] MEDS: VITAMIN E 400 INTERNATIONAL UNITS CAP PO SCH (00:34)
[2025-03-11 05:18] VITALS: BP 116/69; TEMP 97.7; O2SAT 98
[2025-03-11] MEDS: LEVOTHYROXINE 75 MCG TABLET (0.075 MG) PO SCH (05:36)
[2025-03-11] MEDS ORDERED: SENNA 8.6 MG TAB PO PRN (06:00)
[2025-03-11 06:26] LABS: PLATELET COUNT, AUTOMATED 268 10^3/uL (150-450)
[2025-03-11 06:56] LABS: CALCIUM LEVEL 8.6 MG/DL (8.3-10.6); CARBON DIOXIDE LEVEL 22.0 MMOL/L (20-31); CHLORIDE LEVEL 109.0 MMOL/L (98-107); CREATININE FOR GFR 1.14 MG/DL (0.55-1.30); GLOMERULAR FILTRATION RATE 46.0 (>32); MAGNESIUM LEVEL 2.3 MG/DL (1.8-2.4); POTASSIUM SERUM 3.7 MMOL/L (3.5-5.1); SODIUM LEVEL 141.0 MMOL/L (136-145)
[2025-03-11] MEDS: DOCUSATE SODIUM 100 MG CAPSULE PO SCH (08:33)
[2025-03-11 12:00] VITALS: BP_SYST 126; BP_SYST 141; BP_DIAS 69; BP_DIAS 84; TEMP 96.8; TEMP 97.9; O2SAT 93; O2SAT 96
[2025-03-11 19:48] VITALS: BP 127/66; TEMP 97.9; O2SAT 98
[2025-03-12 04:44] VITALS: BP 141/61; TEMP 97.5; O2SAT 98
[2025-03-12 06:05] LABS: PLATELET COUNT, AUTOMATED 257 10^3/uL (150-450)
[2025-03-12 06:38] LABS: CALCIUM LEVEL 8.8 MG/DL (8.3-10.6); CARBON DIOXIDE LEVEL 25.0 MMOL/L (20-31); CHLORIDE LEVEL 111.0 MMOL/L (98-107); CREATININE FOR GFR 0.89 MG/DL (0.55-1.30); GLOMERULAR FILTRATION RATE 61.9 (>32); POTASSIUM SERUM 4.2 MMOL/L (3.5-5.1); SODIUM LEVEL 144.0 MMOL/L (136-145)
[2025-03-12] MEDS ORDERED: ATROPINE SULFATE 1% OPHTH SOLN 2 ML BTL SL PRN (10:15)
[2025-03-12] MEDS ORDERED: ONDANSETRON 4MG ORAL DISINTEGRATING TAB PO PRN (10:15)
[2025-03-12] MEDS ORDERED: HYOSCYAMINE SULFATE 0.125 MG SUBL TABLET PO PRN (10:15)
[2025-03-12] MEDS: MORPHINE 10 MG/0.5 ML ORAL CONCENTRATE SOLUTION U/D SL PRN ×2 (13:37→16:29)
[2025-03-12] MEDS: LORazepam 1 MG TAB PO PRN (13:38)
[2025-03-12 20:43] VITALS: BP 149/76
[2025-03-12] MEDS: OLANZapine ORAL DISINTEGRATING TAB 5MG PO SCH (20:44)
[2025-03-13] MEDS: MORPHINE 10 MG/0.5 ML ORAL CONCENTRATE SOLUTION U/D SL SCH (10:34)
[2025-03-13] MEDS: LORazepam 0.5 MG TAB PO SCH (14:20)
[2025-03-14] MEDS ORDERED: ATIV1TAB10 PO (07:29)
[2025-03-14] MEDS ORDERED: OLANZapine DISINTEGRATING PO (07:29)
[2025-03-14] MEDS ORDERED: ONDA-282 PO (07:29)
[2025-03-14] MEDS ORDERED: MORP1SOL5 PO (07:29)
[2025-03-14] MEDS ORDERED: HYOS125TA PO (07:29)
[2025-03-14] MEDS ORDERED: OLAN10TA12 PO (07:30)
[2025-03-15] MEDS ORDERED: LEVOTHYROXINE 50 MCG TABLET (0.05 MG) PO SCH (06:00)
== END 2025-03-14 10:11 | disposition hospice, inpatient (51) ==
LOC: EDBD 13:49 → M ED 13:49 → M ED INP 13:50 → M MSPAV 20:09
PROVIDERS: ADMIT Internal Medicine; ATTEND Internal Medicine
DX: R63.8 Other symptoms and signs concerning food and fluid intake (principal); F03.90 Unspecified dementia, unspecified severity, without behavioral disturbance, psychotic disturbance, mood disturbance, and anxiety; Z51.5 Encounter for palliative care; E87.20 Acidosis, unspecified; R53.1 Weakness; D64.9 Anemia, unspecified; N17.9 Acute kidney failure, unspecified; I10 Essential (primary) hypertension; F41.9 Anxiety disorder, unspecified; F32.A Depression, unspecified; E03.9 Hypothyroidism, unspecified; K59.00 Constipation, unspecified; Z86.73 Personal history of transient ischemic attack (TIA), and cerebral infarction without residual deficits; Z79.899 Other long term (current) drug therapy
CPT/HCPCS: 36415; 70450; 71045; 80048; 80076; 81001; 82140; 82550; 82553; 83735; 84132; 84443; 84484; 85025; 85027; 87088; 87186; 93005; 93041; 94760; 96361; 96372; 96374; 97165; 97535; 99285; G0378